=== PATIENT | female | born 1995 | race Caucasian/White ===

== ENCOUNTER 2019-05-02 15:49 | Emergency (ER) | payer BC, OTHER ==
[~2019-05-02] VITALS: Ht 162 cm; Wt 98.8 kg
[2019-05-02] MEDS ORDERED: AMIT50TA3 (16:28)
[2019-05-02] MEDS ORDERED: DESO1TAB70 (16:28)
[2019-05-02] MEDS ORDERED: SERT100T8 (16:28)
[2019-05-02] MEDS ORDERED: LACTATED RINGERS 1,000 ML IV ONE (16:53)
[2019-05-02] MEDS ORDERED: FAMOTIDINE 20MG/2ML IV (PEPCID) IVP ONE (17:00)
[2019-05-02] MEDS ORDERED: ONDANSETRON 4 MG/2 ML (SDV) Z0FRAN IVP ONE (17:00)
--- NOTE | 2019-05-02 17:09 | ED GI ---
General Chief Complaint: Abdominal/GI Problems Stated Complaint: VOMITING, FEVER, DIZZY Nursing Triage Note: PT PRESENTS TO ED WITH COMPLAINTS OF FEVER SATURDAY AND VOMITING STARTING THIS AM. PT DENIES FEVER OR DIAHRREA TODAY. PT DENIES ABDOMINAL PAIN BUT REPORTS GENERALIZED BODY ACHES. Sepsis Screen: No Definite Risk (B[employer]SMAN GUSTAFSON MEDICAL STUDENT) History of Present Illness Initial Comments Ms. Estes is a 23 year-old female presenting to the ED for vomiting. Patient reports that she has been vomiting since 11am this morning. The vomiting is continuous for ~30 minutes followed with ~30 minute breaks in between. Her vomit has been mostly liquid with bile but for the last couple hours has been mostly dry heaving. She has also been experiencing dizziness for the same amount of time. She describes the dizziness as feeling unsteady after vomiting; she denies vertigo before the vomiting episodes. She denies any blood in her vomit. Patient denies fever, diarrhea, cough, or abdominal pain aside from general soreness from vomiting. She denies any change in diet, eating sketchy foods, or trying any new restaurants. Patient does have a history of vomiting ~every couple weeks. It is usually a single episode of vomiting and does not continue for a prolonged course like today. She denies any use of marijuana, other drugs, alcohol or tobacco. She has a PMH of OCD, Migraines, and Asthma for which she takes amitriptyline, sertraline, and albuterol. (BOSSMAN GUSTAFSON MEDICAL STUDENT) Date Seen by Provider: May 02, 2019 Time Seen by Provider: 16:30 (SHONDA KERR MD) Allergies and Home Medications Allergies Coded Allergies: No Known Drug Allergies (Unverified , 05/02/19) Home Medications Ondansetron 4 Mg Tab.rapdis, 4 MG SL Q4H PRN for NAUSEA/VOMITING Prescribed by: SHONDA SMART on 05/02/19 1830 Patient Home Medication List Home Medication List Reviewed: Yes (SHONDA KERR MD) Review of Systems Review of Systems Constitutional: chills, dizziness EENTM: No Symptoms Reported Respiratory: No Symptoms Reported Cardiovascular: No Symptoms Reported Gastrointestinal: Nausea, Poor Fluid Intake, Vomiting Musculoskeletal: muscle pain Psychiatric/Neurological: No Symptoms Reported (B[employer] GUSTAFSON MEDICAL STUDENT) Genitourinary: No Symptoms Reported Skin: no symptoms reported Endocrine: No Symptoms Reported Hematologic/Lymphatic: No Symptoms Reported (SHONDA KERR MD) Past Trrddxx-Jsfnmb-Mklumt Hx Patient Social History Alcohol Use: Denies Use Recreational Drug Use: No Smoking Status: Never a Smoker Recent Foreign Travel: No Contact w/Someone Who Travel: No Recent Infectious Disease Expo: No Recent Hopitalizations: No Physical Abuse: No Sexual Abuse: No Mistreated: No Fear: No (B[employer] GUSTAFSON MEDICAL STUDENT) Seasonal Allergies Seasonal Allergies: No (BOSSMAN GUSTAFSON) Past Medical History Surgeries: Yes (L FOREARM, HEAD, ) Orthopedic, Tonsillectomy Respiratory: Yes Asthma Cardiac: No Neurological: Yes Headaches /Migraines Genitourinary: No Gastrointestinal: No Musculoskeletal: No Endocrine: No HEENT: No Cancer: No Psychosocial: Yes (OCD) Integumentary: No Blood Disorders: No Adverse Reaction/Blood Tranf: No (BOSSMAN GUSTAFSON) Physical Exam Vital Signs Vital Signs - First Documented 05/02/19 16:10 Temp 36.2 Pulse 100 Resp 16 B/P (MAP) 134/75 (94) Pulse Ox 99 (SHONDA KERR MD) Vital Signs Capillary Refill : Less Than 3 Seconds (BOSSMAN GUSTAFSON) Height/Weight/BMI Height: '" Weight: lbs. oz. kg; 37.00 BMI Method: General Appearance: mild distress HEENT: normal ENT inspection, pharynx normal Respiratory: lungs clear, normal breath sounds Cardiovascular: regular rate, rhythm, no murmur Gastrointestinal: normal bowel sounds, non tender, soft (BOSSMAN GUSTAFSON STUDENT) Progress/Results/Core Measures Results/Orders Lab Results Laboratory Tests Test 05/02/19 17:23 Range/Units White Blood Count 11.2 H 4.3-11.0 10^3/uL Red Blood Count 4.94 4.35-5.85 10^6/uL Hemoglobin 14.4 11.5-16.0 G/DL Hematocrit 41 35-52 % Mean Corpuscular Volume 84 80-99 FL Mean Corpuscular Hemoglobin 29 25-34 PG Mean Corpuscular Hemoglobin Concent 35 32-36 G/DL Red Cell Distribution Width 12.3 10.0-14.5 % Platelet Count 321 130-400 10^3/uL Mean Platelet Volume 9.1 7.4-10.4 FL Neutrophils (%) (Auto) 90 H 42-75 % Lymphocytes (%) (Auto) 6 L 12-44 % Monocytes (%) (Auto) 3 0-12 % Eosinophils (%) (Auto) 1 0-10 % Basophils (%) (Auto) 0 0-10 % Neutrophils # (Auto) 10.1 H 1.8-7.8 X 10^3 Lymphocytes # (Auto) 0.7 L 1.0-4.0 X 10^3 Monocytes # (Auto) 0.3 0.0-1.0 X 10^3 Eosinophils # (Auto) 0.1 0.0-0.3 10^3/uL Basophils # (Auto) 0.0 0.0-0.1 10^3/uL Neutrophils % (Manual) 94 % Lymphocytes % (Manual) 5 % Monocytes % (Manual) 1 % Blood Morphology Comment NORMAL Sodium Level 139 135-145 MMOL/L Potassium Level 4.1 3.6-5.0 MMOL/L Chloride Level 105 98-107 MMOL/L Carbon Dioxide Level 23 21-32 MMOL/L Anion Gap 11 5-14 MMOL/L Blood Urea Nitrogen 9 7-18 MG/DL Creatinine 0.92 0.60-1.30 MG/DL Estimat Glomerular Filtration Rate > 60 BUN/Creatinine Ratio 10 Glucose Level 115 H 70-105 MG/DL Calcium Level 9.3 8.5-10.1 MG/DL Corrected Calcium 9.1 8.5-10.1 MG/DL Magnesium Level 1.7 1.6-2.4 MG/DL Total Bilirubin 0.1 0.1-1.0 MG/DL Aspartate Amino Transf (AST/SGOT) 15 5-34 U/L Alanine Aminotransferase (ALT/SGPT) 12 0-55 U/L Alkaline Phosphatase 83 40-136 U/L Total Protein 7.8 6.4-8.2 GM/DL Albumin 4.3 3.2-4.5 GM/DL Serum Test, Qualitative NEGATIVE NEGATIVE (SHONDA KERR MD) My Orders Orders - SHONDA KERR MD Cbc With Automated Diff (05/02/19 16:53) Comprehensive Metabolic Panel (05/02/19 16:53) Hcg,Qualitative Serum (05/02/19 16:53) Magnesium (05/02/19 16:53) Ed Iv/Invasive Line Start (05/02/19 16:53) Lactated Ringers (Lr 1000 Ml Iv Solution (05/02/19 16:53) Ondansetron Injection (Zofran Injectio (05/02/19 17:00) Famotidine Injection (Pepcid Injection) (05/02/19 17:00) Manual Differential (05/02/19 17:23) (SHONDA KERR MD) Medications Given in ED Current Medications Medications Dose Ordered Sig/Breanna Route Start Time Stop Time Status Last Admin Dose Admin Famotidine 20 mg ONCE ONCE IVP 05/02/19 17:00 05/02/19 17:01 DC 05/02/19 17:23 20 MG Lactated Ringer's 1,000 ml @ 0 mls/hr Q0M ONCE IV 05/02/19 16:53 05/02/19 16:57 DC 05/02/19 17:23 0 MLS/HR Ondansetron HCl 8 mg ONCE ONCE IVP 05/02/19 17:00 05/02/19 17:01 DC 05/02/19 17:23 8 MG (SHNODA KERR MD) Vital Signs/I&O 05/02/19 05/02/19 16:10 18:44 Temp 36.2 36.2 Pulse 100 74 Resp 16 15 B/P (MAP) 134/75 (94) 126/70 (94) Pulse Ox 99 99 (SHONDA KERR MD) Blood Pressure Mean: 94 Departure Impression Primary Impression: Nausea and vomiting Qualified Codes: R11.2 - Nausea with vomiting, unspecified Disposition: HOME, SELF-CARE Condition: Improved Departure-Patient Inst. Decision time for Depature: 18:28 (SHONDA KERR MD) Referrals: NO,LOCAL PHYSICIAN (PCP/Family) Primary Care Physician Patient Instructions: Nausea and Vomiting, Adult Add. Discharge Instructions: Adhere to a clear liquid diet for the remainder of tonight. Tomorrow you may gradually advance your diet with small quantities of bland food as tolerated. Avoid any milk products or fatty or greasy foods until symptoms have completely resolved for at least 48 hours. Use Zofran as prescribed to control nausea and vomiting. You may return to work or school when fever free for 24 hours without the use of medications. Return to the emergency room if you have worsening symptoms despite following these measures. All discharge instructions reviewed with patient and/or family. Voiced understanding. Scripts Ondansetron (Ondansetron Odt) 4 Mg Tab.rapdis 4 MG SL Q4H PRN for NAUSEA/VOMITING, #10 TAB Prov: SHONDA KERR MD 05/02/19 I have personally interviewed and examined this patient along with Bossman Gustafson MS4. I agree with his history, physical, assessment, and documentation with the following additions and changes. Exam: Gen.: Alert, oriented, no acute distress HEENT: Normocephalic, mucous membranes moist Heart: Regular rate and rhythm without murmur Lungs: Clear to auscultation bilaterally with normal effort Abdomen: Soft, minimally tender musculature, Normal bowel sounds Skin: Warm and dry without rashes Neuropsych: Alert, oriented, no gross focal deficits Patient was treated with Zofran and IV fluids and responded quite well. She was dismissed home. She had no further vomiting while in the ER. Workup was unremarkable. (SHONDA KERR MD) [employer]AN GUSTAFSON MEDICAL STUDENT May 02, 2019 17:08 SHONDA KERR MD May 02, 2019 18:30
[2019-05-02 17:30] LABS: BASOPHILS % (AUTO) 0 % (0-10); EOSINOPHILS # (AUTO) 0.1 10^3/uL (0.0-0.3); EOSINOPHILS % (AUTO) 1 % (0-10); HEMATOCRIT 41 % (35-52); HEMOGLOBIN 14.4 G/DL (11.5-16.0); LYMPHOCYTES # (AUTO) 0.7 X 10^3 (1.0-4.0); LYMPHOCYTES % (AUTO) 6 % (12-44); MEAN CORPUSCULAR HEMOGLOBIN 29 PG (25-34); MEAN CORPUSCULAR HGB CONC 35 G/DL (32-36); MEAN CORPUSCULAR VOLUME 84 FL (80-99); MEAN PLATELET VOLUME 9.1 FL (7.4-10.4); MONOCYTES # (AUTO) 0.3 X 10^3 (0.0-1.0); MONOCYTES % (AUTO) 3 % (0-12); NEUTROPHILS # (AUTO) 10.1 X 10^3 (1.8-7.8); NEUTROPHILS % (AUTO) 90 % (42-75); PLATELET COUNT 321 10^3/uL (130-400); RED CELL DISTRIBUTION WIDTH 12.3 % (10.0-14.5); WHITE BLOOD COUNT 11.2 10^3/uL (4.3-11.0)
[2019-05-02 17:50] LABS: LYMPHOCYTES % (MANUAL) 5 %; MONOCYTES % (MANUAL) 1 %; NEUTROPHILS % (MANUAL) 94 %; RBC MORPH NORMAL
[2019-05-02 17:51] LABS: ALANINE AMINOTRANSFERASE 12 U/L (0-55); ALBUMIN 4.3 GM/DL (3.2-4.5); ALKALINE PHOSPHATASE 83 U/L (40-136); BILIRUBIN,TOTAL 0.1 MG/DL (0.1-1.0); BUN/CREATININE RATIO 10; CALCIUM 9.3 MG/DL (8.5-10.1); CARBON DIOXIDE 23 MMOL/L (21-32); CHLORIDE 105 MMOL/L (98-107); CREATININE SERUM 0.92 MG/DL (0.60-1.30); GFR ESTIMATED > 60; GLUCOSE 115 MG/DL (70-105); MAGNESIUM 1.7 MG/DL (1.6-2.4); POTASSIUM 4.1 MMOL/L (3.6-5.0); SODIUM 139 MMOL/L (135-145); TOTAL PROTEIN 7.8 GM/DL (6.4-8.2)
[2019-05-02] MEDS ORDERED: ONDA4TAB11 SL (18:30)
[2019-05-02 18:44] VITALS: BP 126/70
== END 2019-05-02 18:44 | disposition home or self-care (01) ==
LOC: ER 15:52
DX: R11.2 Nausea with vomiting, unspecified (principal); F42.9 Obsessive-compulsive disorder, unspecified; G43.909 Migraine, unspecified, not intractable, without status migrainosus; J45.909 Unspecified asthma, uncomplicated; Z90.89 Acquired absence of other organs
CPT/HCPCS: 36415; 80053; 83735; 84703; 85007; 85027

== ENCOUNTER 2020-07-02 12:10 | Emergency (ER) | payer BC ==
[~2020-07-02] VITALS: Ht 162 cm; Wt 99.0 kg
[~2020-07-02 12:10] MED LIST: AMIT50TA3; DESO1TAB70; ONDA4TAB11 SL; SERT-414
[2020-07-02 12:13] VITALS: BP 130/87
--- NOTE | 2020-07-02 12:27 | ED Upper Extremity ---
General Chief Complaint: Upper Extremity Stated Complaint: RIGHT THUMB INJURY Nursing Triage Note: PT AMBULATES TO TRIAGE, PT CO OF SMASHING R THUMB IN COOLER ON SATURDAY OF THIS WEEK, PT CO OF PAIN, DECREASED ROM, OCC NUMBNESS AND WEAKNESS OF JOINT AREA. Nursing Sepsis Screen: No Definite Risk Source: patient Exam Limitations: no limitations History of Present Illness Date Seen by Provider: Jul 02, 2020 Time Seen by Provider: 12:16 Initial Comments Smashed right thumb in a cooler 48 hours ago Onset: other Severity: moderate Pain/Injury Location: right thumb Method of Injury: direct blow Modifying Factors: Worse With Movement Allergies and Home Medications Allergies Coded Allergies: No Known Drug Allergies (Unverified , 05/02/19) Home Medications Ondansetron 4 Mg Tab.rapdis, 4 MG SL Q4H PRN for NAUSEA/VOMITING Prescribed by: SHONDA SMART on 05/02/19 1830 Patient Home Medication List Home Medication List Reviewed: Yes Review of Systems Constitutional: see HPI EENTM: see HPI Respiratory: no symptoms reported Cardiovascular: no symptoms reported Genitourinary: no symptoms reported Musculoskeletal: see HPI Skin: no symptoms reported Psychiatric/Neurological: No Symptoms Reported Past Ieubtjz-Tyctjw-Uaqnze Hx Patient Social History Alcohol Use: Denies Use Smoking Status: Never a Smoker Recent Infectious Disease Expo: No Recent Hopitalizations: No Seasonal Allergies Seasonal Allergies: No Past Medical History Surgeries: Yes (L FOREARM, HEAD, ) Orthopedic, Tonsillectomy Respiratory: Yes Asthma Cardiac: No Neurological: Yes Headaches /Migraines Last Menstrual Period: Jun 11, 2020 Genitourinary: No Gastrointestinal: No Musculoskeletal: No Endocrine: No HEENT: No Cancer: No Psychosocial: Yes (OCD) Integumentary: No Blood Disorders: No Adverse Reaction/Blood Tranf: No Physical Exam Vital Signs Vital Signs - First Documented 07/02/20 12:13 Temp 36.6 Pulse 83 Resp 20 B/P (MAP) 130/87 (101) Pulse Ox 95 Capillary Refill : Less Than 3 Seconds Height, Weight, BMI Height: '" Weight: lbs. oz. kg; 37.00 BMI Method: General Appearance: WD/WN, no apparent distress HEENT: PERRL/EOMI, normal ENT inspection Neck: non-tender, full range of motion Respiratory: no respiratory distress, no accessory muscle use Shoulder: normal inspection, non-tender Elbow/Forearm: normal inspection, non-tender Wrist: Yes normal inspection, Yes non-tender Hand: Right Progress/Results/Core Measures Results/Orders My Orders Orders - SYLVESTER GUY APRN Hand, Right, 3 Views (07/02/20 12:25) Vital Signs/I&O 07/02/20 12:13 Temp 36.6 Pulse 83 Resp 20 B/P (MAP) 130/87 (101) Pulse Ox 95 Blood Pressure Mean: 101 Departure Impression Primary Impression: Contusion of hand Disposition: 01 HOME, SELF-CARE Condition: Stable Departure-Patient Inst. Decision time for Depature: 12:42 Referrals: DAPHNIE DE SOUZA DO (PCP/Family) Primary Care Physician Patient Instructions: Contusion (DC) SYLVESTER GUY APRN Jul 02, 2020 12:27
--- NOTE | 2020-07-02 12:45 | Diagnostic Imaging Report ---
INDICATION: Smashed right thumb on . FINDINGS: 3 views of the right hand demonstrates normal ossification. No fracture, subluxation or foreign body is present. IMPRESSION: Normal right hand. Dictated by: Dictated on workstation # [id number]
== END 2020-07-02 12:51 | disposition home or self-care (01) ==
LOC: EDUNIT# 12:10 → ER 12:13
DX: S60.011A Contusion of right thumb without damage to nail, initial encounter (principal); W23.1XXA Caught, crushed, jammed, or pinched between stationary objects, initial encounter
CPT/HCPCS: 73130